=== PATIENT | female | born 1975 | race Caucasian/White ===

== ENCOUNTER 2016-10-30 19:42 | Emergency (ER) | payer MEDICAID, OTHER ==
[~2016-10-30] VITALS: Ht 172.7 cm; Wt 62.1 kg
[~2016-10-30 19:42] MED LIST: DICY10 PO; PHEN12.5 PR; Z.0.NO CURRENT MEDS
[2016-10-30 19:52] VITALS: BP 105/75; PULSE 112; RESP 16; TEMP 98.7; O2SAT 95
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
[2016-10-30] MEDS ORDERED: ACET325T PO (21:24)
[2016-10-30] MEDS ORDERED: ORPH100T99 PO (21:24)
[2016-10-30] MEDS ORDERED: IBUP-232 PO (21:24)
== END 2016-10-30 21:37 | disposition home or self-care (01) ==
LOC: PHEFT 19:42
DX: S16.1XXA Strain of muscle, fascia and tendon at neck level, initial encounter (principal); V43.52XA Car driver injured in collision with other type car in traffic accident, initial encounter
CPT/HCPCS: 72125

== ENCOUNTER 2017-02-10 20:21 | Emergency (ER) | payer MEDICAID ==
[~2017-02-10 20:21] MED LIST changes: +ACET325T PO; -DICY10 PO; +IBUP-232 PO; +ORPH100T99 PO; -PHEN12.5 PR; -Z.0.NO CURRENT MEDS
[2017-02-10 20:23] VITALS: BP 123/79; PULSE 82; RESP 16; TEMP 98; O2SAT 100
--- NOTE | 2017-02-10 21:10 | PD ---
Physical Exam Date Seen by Provider: Feb 10, 2017 Time Seen by Provider: 21:09 Data Data Last Documented VS Vital Signs Date Time Temp Pulse Resp B/P Pulse Ox O2 Delivery O2 Flow Rate FiO2 02/10/17 20:23 98.0 82 16 123/79 100 Room Air [facility] Supervised Visit with NATALY: No Narrative Course 41 YO F with complaint of chest tightness, cough, throat pain x 1 week. --SOB, fevers. Current smoker. Vitals reviewed. Awaiting bed placement. Mabel Mclean Feb 10, 2017 21:10 Mabel Mclean Feb 10, 2017 21:10
[2017-02-10] MEDS ORDERED: SODIUM CHLORIDE 0.9% FLUSH 10 ML FLUSH IVF PRN (21:30)
[2017-02-10] MEDS ORDERED: methylPREDNISolone SOD SUCC 125 MG/2 ML VIAL IVP ONE (21:30)
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
[2017-02-10 21:52] VITALS: PULSE 72; RESP 16
[2017-02-10 22:15] LABS: BASOPHIL # 0.1 TH/MM3 (0-0.2); BASOPHIL % 0.6 % (0.0-2.0); EOSINOPHIL # 0.2 TH/MM3 (0-0.4); EOSINOPHIL % 2.4 % (0.0-4.0); HEMATOCRIT 43.2 % (35.0-46.0); HEMO FLAGS DIFF FINAL; LYMPHOCYTE # 3.1 TH/MM3 (1.0-4.8); MEAN CELL VOLUME 80.9 FL (80.0-100.0); MEAN CORPUSCULAR HEMOGLOBIN 27.2 PG (27.0-34.0); MEAN CORPUSCULAR HGB CONC 33.6 % (32.0-36.0); MONO % 12.5 % (0.0-8.0); NEUT % 47.5 % (16.0-70.0); PLATELET COUNT 205 TH/MM3 (150-450); RED BLOOD COUNT 5.35 MIL/MM3 (4.00-5.30); RED CELL DISTRIBUTION WIDTH 15.5 % (11.6-17.2); WHITE BLOOD COUNT 8.4 TH/MM3 (4.0-11.0)
[2017-02-10] MEDS: RESP: ALBUTEROL 2.5 MG/IPRATROPIUM 0.5 MG NEB (SCH) INH (22:18)
[2017-02-10 22:29] LABS: ANION GAP 9 MEQ/L (5-15); BICARBONATE 26.9 MEQ/L (21.0-32.0); BLOOD UREA NITROGEN 20 MG/DL (7-18); CHLORIDE 105 MEQ/L (98-107); GLOMERULAR FILTRATION RATE 73 ML/MIN (>89); POTASSIUM 3.9 MEQ/L (3.5-5.1); SODIUM (NA) 141 MEQ/L (136-145)
[2017-02-10 22:32] LABS: APTT (PATIENT) 28.1 SEC (24.3-30.1); PROTHROMBIN TIME - PATIENT 11.5 SEC (9.8-11.6)
[2017-02-10 22:33] LABS: CREATINE KINASE 179 U/L (26-192)
[2017-02-10 22:45] VITALS: O2SAT 98
[2017-02-10 22:45] LABS: CKMB 1.6 NG/ML (0.5-3.6)
[2017-02-10] MEDS ORDERED: ZITHTAB PO (22:58)
[2017-02-10] MEDS ORDERED: ALBU0.63 NEB (22:58)
[2017-02-10] MEDS ORDERED: VENTAER INH (22:58)
[2017-02-10] MEDS ORDERED: PRED50 PO (22:58)
[2017-02-10] MEDS ORDERED: KETOROLAC TROMETHAMINE 30 MG/ML (IVP) VIAL IV PUSH ONE (23:00)
[2017-02-10 23:09] VITALS: BP 126/74; TEMP 98.9
--- NOTE | 2017-02-11 17:37 | EKG ---
Date Performed: 02/10/2017 Time Performed: 22:15:31 PTAGE: 41 years EKG: Sinus rhythm WITH OCCASIONAL SUPRAVENTRICULAR PREMATURE COMPLEXES POSSIBLE RIGHT VENTRICULAR CONDUCTION DELAY BOR DERLINE ECG NO PREVIOUS TRACING DOCTOR: Yulia Knight Interpretating Date/Time 02/11/2017 17:35:49
== END 2017-02-10 23:10 | disposition home or self-care (01) ==
LOC: NEPD 20:21
DX: J40 Bronchitis, not specified as acute or chronic (principal); F17.210 Nicotine dependence, cigarettes, uncomplicated; R07.89 Other chest pain
CPT/HCPCS: 71010; 80048; 82550; 82552; 84484; 85025; 85610; 85730; 93005; 94640; 94664; 96374; 96375; 99285; J1885; J2930

== ENCOUNTER 2017-03-11 15:39 | Emergency (ER) | payer SELFPAY ==
[~2017-03-11] VITALS: Ht 170.2 cm; Wt 60.0 kg
[~2017-03-11 15:39] MED LIST changes: -ACET325T PO; +ALBU0.63 NEB; -IBUP-232 PO; -ORPH100T99 PO; +PRED50 PO; +VENTAER INH; +ZITHTAB PO
[2017-03-11 15:41] VITALS: BP 135/81; PULSE 96; RESP 24; TEMP 98.8; O2SAT 96
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
[2017-03-11] MEDS ORDERED: NAPR500T PO (16:44)
[2017-03-11] MEDS ORDERED: KETOROLAC TROMETHAMINE 60 MG/2 ML (IM) VIAL IM ONE (16:45)
[2017-03-11] MEDS ORDERED: ACETAMINOPHEN/HYDROcodone 325 MG/5 MG TAB PO ONE (16:45)
== END 2017-03-11 17:15 | disposition home or self-care (01) ==
LOC: NEPK 15:39
DX: M25.562 Pain in left knee (principal); M25.552 Pain in left hip; M25.462 Effusion, left knee; M79.7 Fibromyalgia; R56.9 Unspecified convulsions; F41.9 Anxiety disorder, unspecified; F32.9 Major depressive disorder, single episode, unspecified; F17.200 Nicotine dependence, unspecified, uncomplicated; Z79.51 Long term (current) use of inhaled steroids
CPT/HCPCS: 73502; 73564; 84703; 96372; 99284; E0113; J1885

== ENCOUNTER 2017-06-18 12:11 | Emergency (ER) | payer OTHER ==
[~2017-06-18] VITALS: Ht 172.7 cm; Wt 60.0 kg
[~2017-06-18 12:11] MED LIST changes: +NAPR500T PO
[2017-06-18 12:14] VITALS: BP 126/82; PULSE 70; RESP 13; TEMP 98.3; O2SAT 96
[2017-06-18] MEDS ORDERED: METHOCARBAMOL 500 MG TAB PO ONE (12:30)
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
[2017-06-18] MEDS ORDERED: IBUP800T23 PO (13:26)
[2017-06-18] MEDS ORDERED: ROBA500T PO (13:26)
[2017-06-18] MEDS ORDERED: KETOROLAC TROMETHAMINE 60 MG/2 ML (IM) VIAL IM ONE (13:30)
== END 2017-06-18 14:10 | disposition home or self-care (01) ==
LOC: NEPK 12:11
DX: S16.1XXA Strain of muscle, fascia and tendon at neck level, initial encounter (principal); S39.012A Strain of muscle, fascia and tendon of lower back, initial encounter; S40.022A Contusion of left upper arm, initial encounter; F17.200 Nicotine dependence, unspecified, uncomplicated; Z87.39 Personal history of other diseases of the musculoskeletal system and connective tissue; Z86.69 Personal history of other diseases of the nervous system and sense organs; Z86.59 Personal history of other mental and behavioral disorders; V89.2XXA Person injured in unspecified motor-vehicle accident, traffic, initial encounter; Y92.410 Unspecified street and highway as the place of occurrence of the external cause
CPT/HCPCS: 72125; 72131; 73060; 96372; 99285; J1885

== ENCOUNTER 2017-10-01 19:36 | Emergency (ER) | payer SELFPAY ==
[~2017-10-01] VITALS: Ht 172.7 cm; Wt 59.0 kg
[~2017-10-01 19:36] MED LIST changes: -ALBU0.63 NEB; +IBUP1TAB7 PO; -NAPR500T PO; -PRED50 PO; +ROBA500T PO; -VENTAER INH; -ZITHTAB PO
[2017-10-01 19:37] VITALS: BP 158/84; PULSE 96; RESP 16; TEMP 99.8; O2SAT 99
[2017-10-01] MEDS ORDERED: CLIN150C14 PO (21:24)
[2017-10-01] MEDS ORDERED: CIPR-9 PO (21:24)
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
[2017-10-01] MEDS ORDERED: CIPROFLOXACIN 500 MG TAB PO ONE (21:30)
[2017-10-01] MEDS ORDERED: CLINDAMYCIN INJ 900 MG in SODIUM CHLORIDE 0.9% INJ 100 ML IV ONE (21:30)
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
== END 2017-10-01 22:57 | disposition home or self-care (01) ==
LOC: NEPE 19:36
DX: L03.90 Cellulitis, unspecified (principal); L97.929 Non-pressure chronic ulcer of unspecified part of left lower leg with unspecified severity; F17.200 Nicotine dependence, unspecified, uncomplicated; B96.20 Unspecified Escherichia coli [E. coli] as the cause of diseases classified elsewhere; B95.61 Methicillin susceptible Staphylococcus aureus infection as the cause of diseases classified elsewhere; B95.0 Streptococcus, group A, as the cause of diseases classified elsewhere
CPT/HCPCS: 73600; 86403; 87070; 87077; 87186; 87205; 96374